=== PATIENT | female | born 1945 | race Caucasian/White ===

== ENCOUNTER 2017-09-02 13:45 | Emergency (ER) | payer MEDICARE, BC ==
--- NOTE | 2017-09-02 14:30 | EDM.PDOC ---
ED HPI GENERAL MEDICAL PROBLEM - General Chief Complaint: General Stated Complaint: HTN Time Seen by Provider: 09/02/17 13:50 Source of Information: Reports: Patient, Family History Limitations: Reports: No Limitations - History of Present Illness INITIAL COMMENTS - FREE TEXT/NARRATIVE: Patient is a 72-year-old female seen with hypertension patient recently went to her doctor in [place] started on the lisinopril and Lipitor after starting her medication patient noted her blood pressure was still high she called her primary provider and was told to increase lisinopril 2 tablets daily patient increase the Lipitor instead she checked her blood pressure today and was still high was told to come to the emergency room for evaluation and treatment Onset: Gradual Duration: Day(s):, Getting Worse Location: Reports: Generalized Severity: Severe Improves with: Reports: Medication Worsens with: Reports: None Context: Reports: Activity Associated Symptoms: Reports: Weakness - Related Data Allergies Allergy/AdvReac Type Severity Reaction Status Date / Time Penicillins Allergy Rash Verified 09/02/17 13:51 Sulfa (Sulfonamide Allergy Rash Verified 09/02/17 13:51 Antibiotics) Home Meds: Home Meds Aspirin [Halfprin] 81 mg PO DAILY 09/02/17 [History] Lisinopril 20 mg PO DAILY 09/02/17 [History] Magnesium Oxide [Magnesium] 400 mg PO DAILY 09/02/17 [History] atorvaSTATin [Lipitor] 20 mg PO BEDTIME 09/02/17 [History] Social & Family History - Tobacco Use Smoking Status *Q: Never Smoker Second Hand Smoke Exposure: No - Caffeine Use Caffeine Use: Reports: Coffee, Soda ED ROS GENERAL - Review of Systems Review Of Systems: See Below Constitutional: Reports: Other (Overweight) HEENT: Reports: No Symptoms Respiratory: Reports: No Symptoms Cardiovascular: Reports: Blood Pressure Problem Endocrine: Reports: No Symptoms GI/Abdominal: Reports: No Symptoms : Reports: No Symptoms Musculoskeletal: Reports: No Symptoms Skin: Reports: No Symptoms Neurological: Reports: No Symptoms Psychiatric: Reports: No Symptoms Hematologic/Lymphatic: Reports: No Symptoms Immunologic: Reports: No Symptoms ED EXAM, GENERAL - Physical Exam Exam: See Below Exam Limited By: No Limitations General Appearance: Alert, WD/WN, No Apparent Distress Ears: Normal External Exam, Normal Canal, Hearing Grossly Normal, Normal TMs Ear Exam: Bilateral Ear: Auricle Normal, Canal Normal, TM normal Nose: Normal Inspection, Normal Mucosa, No Blood Throat/Mouth: Normal Inspection, Normal Lips, Normal Teeth, Normal Gums, Normal Oropharynx, Normal Voice, No Airway Compromise Head: Atraumatic, Normocephalic Neck: Normal Inspection, Supple, Non-Tender, Full Range of Motion Respiratory/Chest: No Respiratory Distress, Lungs Clear, Normal Breath Sounds, No Accessory Muscle Use, Chest Non-Tender Cardiovascular: Normal Peripheral Pulses, Regular Rate, Rhythm, No Gallop, No JVD, No Murmur, No Rub. No: No Edema GI/Abdominal: Normal Bowel Sounds, Soft, Non-Tender, No Organomegaly, No Distention, No Abnormal Bruit, No Mass (Female) Exam: Deferred Rectal (Female) Exam: Deferred Back Exam: Normal Inspection, Full Range of Motion, NT Extremities: Pedal Edema Neurological: Alert, Oriented, CN II-XII Intact, Normal Cognition, Normal Gait, Normal Reflexes, No Motor/Sensory Deficits Psychiatric: Normal Affect, Normal Mood Skin Exam: Warm, Dry, Intact, Normal Color, No Rash Lymphatic: No Adenopathy Course - Vital Signs Last Recorded V/S: Last Vital Signs Temp 98.2 F 09/02/17 13:46 Pulse 70 09/02/17 13:46 Resp 16 09/02/17 13:46 BP 221/90 H 09/02/17 13:46 Pulse Ox 99 09/02/17 13:46 Departure - Departure Time of Disposition: 17:14 Disposition: Home, Self-Care 01 Condition: Fair Clinical Impression: Hypertension - Discharge Information Referrals: Zoila Glass PA-C [Primary Care Provider] - Care Plan Goals: Hypertension poorly controlled will increase lisinopril to 40 by mouth daily check her CBC and a BMP prior to discharge at this time blood pressure difficult to control with current medications will increase lisinopril to 40 mg daily we'll add Lasix 40 secondary to edema of lower extremities and will add metoprolol 50 mg twice a day at time of discharge her blood pressure was 169/71 pulse 55 at this time we'll send her home follow up with her primary.
[2017-09-02] MEDS ORDERED: Lisinopril 20 MG Tab PO STA (14:36)
[2017-09-02 15:08] LABS: CHLORIDE,CL 106 mmol/L (98-107); SODIUM,NA 143 mmol/L (136-145)
[2017-09-02] MEDS ORDERED: Furosemide 40 MG Tab PO ONE (15:33)
[2017-09-02] MEDS ORDERED: Metoprolol Tartrate 50 MG Tab PO ONE (16:04)
[2017-09-02] MEDS ORDERED: Metoprolol Tartrate 50 MG Tab ONE (16:09)
== END 2017-09-02 17:50 | disposition home or self-care (01) ==
LOC: LL.ED 13:45
DX: I10 Essential (primary) hypertension (principal); Z88.0 Allergy status to penicillin; Z88.2 Allergy status to sulfonamides; Z79.899 Other long term (current) drug therapy; Z79.82 Long term (current) use of aspirin
CPT/HCPCS: 36415; 80048; 85025; 99284; A9270; 99283